=== PATIENT | female | born 1985 | race African-American/Black ===

== ENCOUNTER 2021-08-02 16:11 | Inpatient (IN) ==
[2021-08-02 17:07] LABS: Bilirubin,Urine Negative (Negative); Blood, Urine Moderate mg/dL (Negative); Glucose,Urine (UA) Negative (Negative); Ketones,Urine 5 mg/dL (Negative); Mucus,Urine Occasional /LPF (Occasional); Nitrite,Urine Negative (Negative); Protein,Urine 30 MG/DL; Squamous Epithelial Cell,Urine Few /HPF (0-10); Urine Appearance CLOUDY (Clear); Urine Color Yellow (Yellow); Urine Specific Gravity 1.017 (1.001-1.035)
[2021-08-02] MEDS ORDERED: LEVOFLOXACIN INJ 500 MG/100 ML PREMIX IV ONE (17:45)
[2021-08-02] MEDS ORDERED: LACTATED RINGERS 1,000 ML IV ONE (17:45)
[2021-08-03] MEDS ORDERED: ONDANSETRON 4 MG/2 ML VIAL IV PRN (04:37)
[2021-08-03] MEDS ORDERED: BUTORPHANOL 2 MG/ML VIAL IV PRN (04:37)
[2021-08-03] MEDS ORDERED: MEPERIDINE 50 MG/1 ML VIAL IV PRN (04:37)
[2021-08-03] MEDS ORDERED: OXYTOCIN/LR 20 UNIT/1,000 ML BAG IV SCH (05:00)
[2021-08-03 05:28] LABS: Basophils % 0.2 % (0.0-0.8); Eosinophils % 0.7 % (0.00-10.9); Hematocrit 33.5 VOL% (35.7-47.0); Hemoglobin 10.6 GM/DL (12.0-16.0); Immature Granulocytes % 0.5 %; Immature Granulocytes Absolute 0.03 #; Lymphocytes # 1.7 10*3/uL (1.4-4.0); Lymphocytes % 29.1 % (21.3-54.2); Mean Corpuscular HGB Conc 31.6 GM/DL (32-36); Mean Corpuscular Volume 76.5 FL (87-102); Monocytes % 6.9 % (1.7-12.7); Neutrophils % 62.6 % (38.7-73.9); Platelet Count 198 T/CUMM (130-400); Red Blood Count 4.38 MC/CUMM (3.8-5.5); Red Cell Distribution Width 15.2 % (9.3-17.3); White Blood Count 5.9 T/CUMM (4-12)
[2021-08-03 05:39] LABS: Albumin 2.2 G/DL (3.4-5.0); Bilirubin,Total 0.8 MG/DL (0.20-1.00); Calcium 8.8 MG/DL (8.5-10.1); Osmolality,Calculated 268.8 MOS/KG (273-304); Potassium 3.8 MMOL/L (3.5-5.1); Total Protein 5.7 G/DL (6.4-8.2)
[2021-08-03 06:06] LABS: Hypochromasia 1+; Microcytosis 1+; Platelet Estimate Adequate
[2021-08-03] MEDS ORDERED: DIPH/TET/ACEL PERT BOOSTER VACCINE 0.5 ML VIAL IM ONE (14:47)
[2021-08-03] MEDS ORDERED: BISACODYL 10 MG SUPP RECTAL PRN (14:47)
[2021-08-03] MEDS ORDERED: oxyCODONE/ACETAMINOPHEN 5-325 MG TABLET PO PRN ×2 (14:47)
[2021-08-03] MEDS ORDERED: LANOLIN 50% CREAM 0.3 OZ TUBE TOP PRN (14:47)
[2021-08-03] MEDS ORDERED: IBUPROFEN 800 MG TABLET PO PRN (14:47)
[2021-08-03] MEDS ORDERED: MEASLES/MUMPS/RUBELLA VACCINE 0.5 ML VIAL SUBCUT ONE (14:47)
[2021-08-03] MEDS ORDERED: OXYTOCIN/LR 20 UNIT/1,000 ML BAG IV ONE (14:47)
[2021-08-03] MEDS ORDERED: HYDROCORTISONE 2.5% RECTAL CREAM 30 GM TUBE TOP PRN (14:47)
[2021-08-03] MEDS ORDERED: WITCH HAZEL PADS 100/JAR TOP PRN (14:47)
[2021-08-03] MEDS ORDERED: RHO(D) IMMUNE GLOBULIN 300 MCG SYRINGE IM ONE (14:47)
[2021-08-03] MEDS ORDERED: BENZOCAINE 20%/MENTHOL 0.5% SPRAY 56 GM CAN TOP PRN (14:47)
[2021-08-03] MEDS ORDERED: ACETAMINOPHEN 325 MG TABLET PO PRN (14:47)
[2021-08-03] MEDS: DOCUSATE SODIUM 100 MG CAPSULE PO SCH (20:58)
[2021-08-04 05:45] LABS: Basophils % 0.1 % (0.0-0.8); Eosinophils # 0.1 10*3/uL (0.0-0.87); Eosinophils % 1.6 % (0.00-10.9); Hematocrit 32.5 VOL% (35.7-47.0); Hemoglobin 10.3 GM/DL (12.0-16.0); Immature Granulocytes % 0.5 %; Immature Granulocytes Absolute 0.04 #; Lymphocytes % 24.5 % (21.3-54.2); Mean Corpuscular HGB Conc 31.7 GM/DL (32-36); Mean Corpuscular Volume 76.7 FL (87-102); Mean Platelet Volume 9.2 FL (9.6-12.0); Neutrophils % 66.3 % (38.7-73.9); Platelet Count 184 T/CUMM (130-400); Red Blood Count 4.24 MC/CUMM (3.8-5.5); Red Cell Distribution Width 15.1 % (9.3-17.3); White Blood Count 8.3 T/CUMM (4-12)
[2021-08-04] MEDS: DOCUSATE SODIUM 100 MG CAPSULE PO SCH (09:00)
[2021-08-05 09:07] VITALS: BP 120/77
[2021-08-05] MEDS: DOCUSATE SODIUM 100 MG CAPSULE PO SCH (09:50)
== END 2021-08-05 11:03 | disposition home or self-care (01) | DRG 806 ==
LOC: N.LDOUT 16:11 → N.LD 16:17 → N.OB 08-03 14:36
PROVIDERS: ADMIT Obstetrics & Gynecology; ATTEND Obstetrics & Gynecology